=== PATIENT | male | born 1965 | race Caucasian/White ===

== ENCOUNTER 2016-12-05 05:45 | Day surgery (SDC) | payer MEDICAID, OTHER ==
[2016-12-02 15:59] VITALS: BMI 26.8
[~2016-12-05] VITALS: Ht 170.2 cm; Wt 76.5 kg
[2016-12-05] VITALS (8 sets, daily range): BP systolic 88–130; BP diastolic 57–72; PULSE 67–82; RESP 10–19; Ht 170.2 cm; Wt 76.5 kg
[~2016-12-05 05:45] MED LIST: LORA1TAB PO
[2016-12-05 06:43] LABS: ADD SCAN DIFF NO
[2016-12-05 06:47] LABS: BASOPHIL # 0.1 10^3/ul (0.0-0.1); BASOPHILS % 0.8 % (0.0-2.0); EOSINOPHILS # 0.8 10^3/ul (0.0-0.5); EOSINOPHILS % 8.6 % (0.0-7.0); HEMATOCRIT 38.3 % (42.0-52.0); HEMOGLOBIN 12.1 g/dl (14.0-18.0); LYMPHOCYTES # 2.3 10^3/ul (0.8-2.9); LYMPHOCYTES % 25.4 % (15.0-51.0); MEAN CORPUSCULAR HEMOGLOBIN 27.5 pg (29.0-33.0); MEAN CORPUSCULAR HGB CONC 31.6 g/dl (32.0-37.0); MEAN PLATELET VOLUME 11.2 fl (7.4-10.4); MONOCYTE # 0.8 10^3/ul (0.3-0.9); MONOCYTES % 9.2 % (0.0-11.0); NEUTROPHILS % 55.7 % (39.0-77.0); PLATELET COUNT 246 10^3/UL (140-415); RED CELL DISTRIBUTION WIDTH 15.2 % (11.5-14.5)
[2016-12-05] MEDS ORDERED: LIDOCAINE 2% (MDV) 20 ML INJ ONE (06:50)
[2016-12-05] MEDS ORDERED: BUPIVACAINE 0.25% (MPF) 30 ML INJ ONE (06:50)
[2016-12-05] MEDS ORDERED: BUPIVACAINE 0.5% (SDV) 30 ML INJ ONE (06:50)
[2016-12-05 07:03] LABS: INR 0.92; PROTIME 12.4 Sec (12.2-14.2)
[2016-12-05 07:13] LABS: CALCIUM 8.8 mg/dl (8.4-10.2); CREATININE 1.12 mg/dl (0.61-1.24); POTASSIUM 3.5 mmol/L (3.5-5.1)
[2016-12-05] MEDS ORDERED: PROPOFOL 20 ML ONE (07:22)
[2016-12-05] MEDS ORDERED: CEFAZOLIN 1 GM INJ ONE (07:22)
[2016-12-05] MEDS ORDERED: LIDOCAINE 2% (SDV) 5 ML INJ ONE (07:22)
[2016-12-05] MEDS ORDERED: MIDAZOLAM 1 MG/ML 2 ML INJ ONE (07:22)
[2016-12-05] MEDS ORDERED: FENTAnyl 50 MCG/ML VIAL ONE (07:22)
[2016-12-05] MEDS ORDERED: SOD CHLORIDE 0.9% 1,000 ML IV SCH (07:30)
[2016-12-05] MEDS ORDERED: CEFAZOLIN 2 GM/50 ML (PMX) 50 ML IVPB ONE (07:30)
[2016-12-05] MEDS ORDERED: METOCLOPRAMIDE 10 MG INJ ONE (07:34)
[2016-12-05] MEDS ORDERED: DEXAMETHASONE 4 MG/ML 1 ML INJ ONE (07:34)
[2016-12-05] MEDS ORDERED: ONDANSETRON 4 MG INJ ONE (07:34)
[2016-12-05] MEDS ORDERED: HYDROmorphONE 2 MG/ML SYG ONE (07:47)
[2016-12-05] MEDS ORDERED: PHENYLephrine (100 MCG/ML) 5ML SYG ONE (07:54)
[2016-12-05] MEDS ORDERED: ONDANSETRON 4 MG INJ IV PRN (08:00)
[2016-12-05] MEDS ORDERED: MEPERIDINE 25 MG INJ IV PRN (08:00)
[2016-12-05] MEDS ORDERED: HYDROmorphONE (0.2 MG/ML) 10ML SYG IV PRN ×2 (08:00)
[2016-12-05] MEDS ORDERED: DIPHENHYDRAMINE 50 MG INJ IV PRN (08:00)
[2016-12-05] MEDS ORDERED: OXYCODONE/ACETAMINOPHEN (5/325) TAB PO PRN ×2 (08:00)
[2016-12-05] MEDS ORDERED: FENTAnyl 50 MCG/ML VIAL IV PRN (08:00)
[2016-12-05] MEDS ORDERED: PROCHLORPERAZINE 10 MG INJ IV PRN (08:00)
[2016-12-05] MEDS ORDERED: HYDROCODONE/APAP (5/325) TAB PO ONE (08:30)
--- NOTE | 2016-12-05 08:43 | RADRPT ---
PROCEDURE: XR Chest. CLINICAL INDICATION: Preop. TECHNIQUE: Single frontal view of the chest was obtained. COMPARISON: None. FINDINGS: Cardiomediastinal silhouette appears normal Pulmonary vasculature appears normal. Lung donaldson appear clear. Costophrenic angles are well defined. The osseous elements appear intact. IMPRESSION: 1. No evidence for active cardiopulmonary disease. RPTAT: [facility] Physician Tasneem Date Time Electronically viewed and signed by Davin Howard Physician on 12/05/2016 08:43 /
--- NOTE | 2016-12-05 09:31 | OPR ---
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 He requests surgical excision. Risks, alternatives, benefits, and personnel were discuss ed with the patient. The patient expressed understanding and consents to the operation. PREOPERATIVE DIAGNOSIS: Right shoulder and left elbow basal cell cancer. POSTOPERATIVE DIAGNOSIS: Right shoulder and left elbow basal cell cancer. OPERATION: 1. Wide local excision of right shoulder basal cell cancer with 6 cm size incision and 6 x 3 cm siz e lesion. 2. Wide local excision of left elbow basal cell cancer with 5 cm size incision and 5 x 2 cm size le mya. 3. Localized adjacent tissue transfer with the use of skin flaps. SURGEON: Sid Storm MD SPECIMEN: Right shoulder and left elbow basal cell cancer surgical markings of right shoulder lesio n is short superior, long lateral and skin anterior, left elbow is short superior, long lateral and skin is posterior. COMPLICATIONS: None. ANESTHESIA: General. PROCEDURE: The patient was taken to the OR and prepped and draped in usual sterile fashion. Surgic al timeout was performed. IV antibiotics were given. An elliptical incision was made over the righ t shoulder lesion with a 15 blade. Dissection cautery was carried down full thickness circumferenti ally and excised with short superior, long lateral and skin anterior markings. Due to the tissue de fect, localized adjacent tissue transfer with the use of skin flaps was performed. Multilayer closu re with interrupted 3-0 Vicryl and skin arvin. Local anesthesia was injected. The left elbow was addressed similarly excised in a transverse fashion and an elliptical fashion with a 15 blade. Mena gical markings were short superior, long lateral and skin posterior. Due to the tissue defect, loca lized adjacent tissue transfer with the use of skin flaps was performed. Multilayer closure with in terrupted 3-0 Vicryl and skin arvin. Local anesthesia was injected. Dry dressings were applied t o the surgical sites. Dictated By: SID AARON/SONG Conf#: [id number] DID#: [id number]
--- NOTE | 2016-12-07 19:03 | RADRPT ---
Vent Rate: 82 bpm RR Interval: 0 msec AR Interval: 142 msec QRS Duration: 98 msec QT Interval: 346 msec QTC Interval: 404 msec P-R-T [place]: 23 - 68 - 55 degrees Normal sinus rhythm Normal ECG Electronically Signed By: Maximus Pascal [id number]
== END 2016-12-05 09:32 | disposition home or self-care (01) ==
LOC: SDS 05:45
PROVIDERS: ATTEND Surgery
DX: C44.519 Basal cell carcinoma of skin of other part of trunk (principal)
CPT/HCPCS: 14000; 71010; 80048; 85025; 85610; 85730; 88304; 93005; J0690; J1100; J1170; J2250; J2370; J2405; J2765; J3010; Z7512; Z7610

== ENCOUNTER 2017-03-09 14:08 | Inpatient (IN) | payer OTHER ==
[~2017-03-09] VITALS: Ht 170.2 cm; Wt 78.8 kg
[2017-03-09] MEDS ORDERED: morphine 10 MG INJ IM ONE ×2 (14:30→16:00)
[2017-03-09] MEDS ORDERED: LORAZEPAM 1 MG TAB PO ONE (15:00)
--- NOTE | 2017-03-09 15:49 | RADRPT ---
PROCEDURE: XR Ankle. CLINICAL INDICATION: Pain. TECHNIQUE: AP, lateral, and oblique views of the left ankle were performed. COMPARISON: None. FINDINGS: The mortise joint appears intact without evidence of fracture or dislocation. Talus is within naima l limits. There is a comminuted nondisplaced fracture of the calcaneus.. There is no significant so ft tissue swelling. IMPRESSION: 1. Comminuted nondisplaced fracture of the calcaneus. 2. The mortise joint appears intact.. RPTAT: UU .Miky Glover MD, MD Date Time Electronically viewed and signed by .Miky Glover MD, MD on 03/09/2017 15:49 .L/
--- NOTE | 2017-03-09 15:51 | RADRPT ---
PROCEDURE: XR Foot. CLINICAL INDICATION: Left foot pain. TECHNIQUE: AP, oblique, and lateral views of the left foot are available for review. COMPARISON: None available FINDINGS: There is a comminuted nondisplaced fracture of the calcaneus with fracture lucencies extending from the anterior to the posterior calcaneus. There is no evidence of dislocation. Remainder of the bon es of the foot appear intact. No other fractures or dislocations identified. Soft tissues are with in normal limits. IMPRESSION: Comminuted nondisplaced fracture of the calcaneus. CT scan of the foot is advised to further charac terize. RPTAT: UU .Miky Glover MD, MD Date Time Electronically viewed and signed by .Miky Glover MD, MD on 03/09/2017 15:51 .L/
--- NOTE | 2017-03-09 16:05 | RADRPT ---
PROCEDURE: XR Foot 3 Views. CLINICAL INDICATION: Right foot pain. TECHNIQUE: AP, oblique and lateral views of the right foot were obtained. The images were reviewe d on a PACS workstation. COMPARISON: None. FINDINGS: Subtle fracture through the inferior margin of the posterior calcaneus is best seen on the oblique i mage. The remaining osseous structures appear intact. No destructive bony lesions are identified. Interosseous spaces are normal. Soft tissues surrounding the foot appear unremarkable. IMPRESSION: Subtle fracture through the inferior margin of the posterior calcaneus, best seen on the oblique taiwo ge. This may reflect an avulsion fracture. If further characterization is needed CT or MRI could be helpful. If there is high clinical suspicion for additional traumatic injury, further evaluation with CT shou ld be considered. RPTAT: AA .Nicolas Ferris MD, Date Time Electronically viewed and signed by .Nicolas Ferris MD, on 03/09/2017 16:05 .P/
--- NOTE | 2017-03-09 16:51 | RADRPT ---
PROCEDURE: CT of the left ankle without contrast CLINICAL INDICATION: Calcaneal fracture TECHNIQUE: CT scan of the left ankle was performed . No IV contrast was administered. Coronal an d sagittal reformatted images were obtained from the axial source images. Images were reviewed on a high-resolution PACS workstation. The calculated radiation dose measures 355.56 mGy centimeters. Th e CTDI measures 18.23 mGy. One or more of the following dose reduction techniques were used: - Automated exposure control. - Adjustment of the mA and/or kV according to patient size . - Use of iterative reconstruction technique. COMPARISON: Radiographs from the same day FINDINGS: Osseous structures: There is a highly comminuted fracture of the calcaneus noting a prominent oblique component extendin g from the plantar surface of the calcaneus to the posterior superior calcaneal margin and oblique c omponent of the fracture extending from the posterior calcaneal margin anteriorly and involving the calcaneal cuboid articular surface. There are additional fracture lines which involve the articular surface of the posterior and anterior subtalar joints. The fracture also involves the peroneal tub ercle seen on the axial series image 36 with the of the fracture line coming into close proximity of the peroneus longus tendon seen on the axial series image 36 and 37. No additional fractures are identified. A bipartite medial and lateral hallux sesamoids are present . Soft tissues: There is straightening of the soft tissues around the calcaneus. Attenuation of the visualized tend ons is otherwise within normal limits for CT. There is suggestion of fluid in the peroneal tendon s linda. IMPRESSION: 1. Highly comminuted fracture of the calcaneus, as detailed above with the fracture lines involving the anterior and posterior subtalar articular surfaces. The fracture fragments are mildly displaced . RPTAT: UU .Juan Fernandez MD, MD Date Time Electronically viewed and signed by .Juan Fernandez MD, MD on 03/09/2017 16:50 .d/
[2017-03-09] MEDS ORDERED: HYDROmorphONE 1 MG/ML SYG IV STA (17:08)
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
[2017-03-09] MEDS ORDERED: ONDANSETRON 4 MG INJ IV PRN ×2 (17:30→20:00)
[2017-03-09] MEDS ORDERED: ACETAMINOPHEN 325 MG TAB PO PRN (17:30)
[2017-03-09 17:35] LABS: ADD SCAN DIFF NO
[2017-03-09 17:37] LABS: BASOPHILS % 0.3 % (0.0-2.0); EOSINOPHILS # 0.4 10^3/ul (0.0-0.5); EOSINOPHILS % 2.8 % (0.0-7.0); HEMATOCRIT 38.5 % (42.0-52.0); HEMOGLOBIN 12.6 g/dl (14.0-18.0); LYMPHOCYTES # 1.6 10^3/ul (0.8-2.9); LYMPHOCYTES % 12.8 % (15.0-51.0); MEAN CORPUSCULAR HEMOGLOBIN 29.2 pg (29.0-33.0); MEAN CORPUSCULAR HGB CONC 32.7 g/dl (32.0-37.0); MEAN CORPUSCULAR VOLUME 89.1 fl (82.0-101.0); MEAN PLATELET VOLUME 10.8 fl (7.4-10.4); MONOCYTE # 0.8 10^3/ul (0.3-0.9); MONOCYTES % 6.6 % (0.0-11.0); NEUTROPHIL # 9.6 10^3/ul (1.6-7.5); NEUTROPHILS % 76.9 % (39.0-77.0); PLATELET COUNT 208 10^3/UL (140-415); RED BLOOD COUNT 4.32 10^6/ul (4.70-6.10); RED CELL DISTRIBUTION WIDTH 17.1 % (11.5-14.5); WHITE BLOOD COUNT 12.5 10^3/ul (4.8-10.8)
[2017-03-09 17:52] LABS: INR 0.94; PROTIME 12.6 Sec (12.2-14.2)
[2017-03-09 17:53] LABS: PARTIAL THROMBOPLASTIN TIME 29.2 Sec (25.0-35.0)
[2017-03-09 18:01] LABS: ANION GAP 13 (8-16); BLOOD UREA NITROGEN 12 mg/dl (7-20); CALCIUM 8.9 mg/dl (8.4-10.2); CARBON DIOXIDE 23 mmol/L (21-31); CHLORIDE 108 mmol/L (97-110); CREATININE 1.05 mg/dl (0.61-1.24); GLUCOSE 82 mg/dl (70-220); SODIUM 140 mmol/L (135-144)
[2017-03-09 18:14] LABS: TROPONIN-I < 0.012 ng/ml (0.00-0.12)
[2017-03-09] MEDS: HYDROmorphONE 2 MG/ML SYG IV PRN ×2 (20:00→21:22)
[2017-03-09] MEDS ORDERED: NACL 0.9% 3 ML SYG IV SCH (20:00)
[2017-03-09 21:00] VITALS: BP 169/90; RESP 18
[2017-03-09] MEDS: HEPARIN 5,000 UNIT/0.5 ML VIAL SC SCH (21:43)
[2017-03-09 22:23] VITALS: Ht 170.2 cm; Wt 78.8 kg
[2017-03-09] MEDS ORDERED: LORAZEPAM 2 MG INJ IV PRN (22:30)
[2017-03-09] MEDS: HYDROmorphONE 1 MG/ML SYG IV PRN (23:32)
[2017-03-09] MEDS: SOD CHLORIDE 0.9% 1,000 ML IV SCH (23:49)
[2017-03-10 00:53] VITALS: BP 169/84; RESP 20
[2017-03-10] MEDS: HYDROmorphONE 2 MG/ML SYG IV PRN ×4 (01:17→19:55)
[2017-03-10] MEDS ORDERED: hydrALAzine 20 MG INJ IV PRN (01:30)
--- NOTE | 2017-03-10 01:50 | HP ---
Date/Time of Note Date/Time of Note DATE: 03/10/17 TIME: 01:36 Assessment/Plan VTE Prophylaxis VTE Prophylaxis Intervention: heparin Lines/Catheters IV [facility] Type [facility]from [facility] Peripheral IV Assessment/Plan Chief Complaint/Hosp Course This is a 48-year-old male being admitted to the [facility] floor for: #1 left ankle/foot comminuted fracture: CT shows: Highly comminuted fracture of the calcaneus, as detailed above with the fracture lines involving the anterior and posterior subtalar articular surfaces. The fracture fragments are mildly displaced. IV pain control, ice pack over fracture site, keep the patient n.p.o. after midnight, IV fluid hydration, orthopedic surgery consulted by the ER. Keep the patient nonweightbearing in a bedrest. #2 right ankle avulsion fracture: IV pain control, keep the patient nonweightbearing in a bedrest orthopedic on consult. #3 leukocytosis: Current time no signs of any fevers or signs of infection. Likely this could be reactive. We will continue to monitor #4 history of basal cell skin cancer: Follow-up with outpatient test rider per #5 heavy tobacco use: Patient has a approximately [id number] history. The current time we will apply nicotine patch. #6 DVT and GI prophylaxis: Heparin, Protonix. Further treatment strategy will be implemented as per the clinical course Problems: HPI/ROS Admit Date/Time Admit Date/Time Mar 09, 2017 at 17:15 Hx of Present Illness Chief complaint: Left and right foot pain after fall This is a 31-year-old male presents to the emergency room for evaluation of left foot and ankle pain after ground-level fall. The patient states he tripped over a table. He denies hitting his head or loss of consciousness and locates his pain to the left heel with no radiation. He describes his pain as a sharp pain worse with any movement. He denies any numbness or tingling in the foot. Allergies: NKDA Medications: See KACEY FIERRO Const: As per HPI Eyes : No pain discharge or redness or change in visual acuity ENT: No pain, sore throat, congestion, congestion, dysphagia or discharge Respiratory: No shortness of breath, cough, sputum, wheezing, or pleuritic pain Cardiovascular: No chest pain, palpitation, PND, or edema GI : no change in appetite, abdominal pain, nausea, vomiting, diarrhea, constipation, or change in the color his stool Genitourinary: No dysuria, hematuria, flank pain , discharge or CVA tenderness Musculoskeletal: As per HPI Skin: No rash, bruising or hives Neuro: No headache, dizziness, syncope, seizure, focal weakness Endocrine: No polyuria, polydipsia, temperature intolerance Psych: No hallucination, depression, anxiety or suicidal ideation PMH/Family/Social Past Medical History Basal cell cancer of the skin Past Surgical History Basal cell cancer surgery removal of the right shoulder and left elbow Family History Significant Family History: cancer (: Colon cancer) Social History Alcohol Use: occasionally Smoking Status: Current every day smoker (1 pack per day 40 years) Exam/Review of Systems Vital Signs Vitals Vital Signs Date Time Temp Pulse Resp B/P Pulse Ox O2 Delivery O2 Flow Rate FiO2 03/10/17 00:53 79 20 169/84 97 03/09/17 21:00 98.2 03/09/17 19:50 Room Air Exam Exam General: Patient is a well-developed well-nourished male in moderate distress HEENT: Atraumatic, normocephalic. The pupils are equal, round and reactive. Extraocular motor are intact Neck: Supple with full range of motion. No rigidity or meningismus Chest: Nontender Lungs: Clear to auscultation bilaterally no crackles rales or wheezing Heart: Normal S1-S2, Regular rhythm and rate. No murmur, S3, or S4 Abdomen: Soft , nontender, nondistended , bowel sounds are present. No guarding no rebound tenderness , No masses or organomegaly. No costovertebral temporal angle mass Extremities: Left foot and ankle swelling, mild bruising. Right foot tenderness to palpation posterior foot. Bilateral 2+ distal pulses Neurologic: Normal mental status, speech normal, cranial nerves II through XII are intact, motor and sensory are intact, no focal weakness Additional Comments PROCEDURE: XR Chest. CLINICAL INDICATION: Preop. TECHNIQUE: Single frontal view of the chest was obtained. COMPARISON: None. FINDINGS: Cardiomediastinal silhouette appears normal Pulmonary vasculature appears normal. Lung donaldson appear clear. Costophrenic angles are well defined. The osseous elements appear intact. IMPRESSION: 1. No evidence for active cardiopulmonary disease. PROCEDURE: XR Foot 3 Views. CLINICAL INDICATION: Right foot pain. TECHNIQUE: AP, oblique and lateral views of the right foot were obtained. The images were reviewed on a PACS workstation. COMPARISON: None. FINDINGS: Subtle fracture through the inferior margin of the posterior calcaneus is best seen on the oblique image. The remaining osseous structures appear intact. No destructive bony lesions are identified. Interosseous spaces are normal. Soft tissues surrounding the foot appear unremarkable. IMPRESSION: Subtle fracture through the inferior margin of the posterior calcaneus, best seen on the oblique image. This may reflect an avulsion fracture. If further characterization is needed CT or MRI could be helpful. If there is high clinical suspicion for additional traumatic injury, further evaluation with CT should be considered. PROCEDURE: XR Ankle. CLINICAL INDICATION: Pain. TECHNIQUE: AP, lateral, and oblique views of the left ankle were performed. COMPARISON: None. FINDINGS: The mortise joint appears intact without evidence of fracture or dislocation. Talus is within normal limits. There is a comminuted nondisplaced fracture of the calcaneus.. There is no significant soft tissue swelling. IMPRESSION: 1. Comminuted nondisplaced fracture of the calcaneus. 2. The mortise joint appears intact.. PROCEDURE: XR Foot. CLINICAL INDICATION: Left foot pain. TECHNIQUE: AP, oblique, and lateral views of the left foot are available for review. COMPARISON: None available FINDINGS: There is a comminuted nondisplaced fracture of the calcaneus with fracture lucencies extending from the anterior to the posterior calcaneus. There is no evidence of dislocation. Remainder of the bones of the foot appear intact. No other fractures or dislocations identified. Soft tissues are within normal limits. IMPRESSION: Comminuted nondisplaced fracture of the calcaneus. CT scan of the foot is advised to further characterize. RPTAT: UU .Miky Glover MD, MD Date Time Electronically viewed and signed by .Miky Glover MD, MD on 03/09/2017 15:51 PROCEDURE: CT of the left ankle without contrast CLINICAL INDICATION: Calcaneal fracture TECHNIQUE: CT scan of the left ankle was performed . No IV contrast was administered. Coronal and sagittal reformatted images were obtained from the axial source images. Images were reviewed on a high-resolution PACS workstation. The calculated radiation dose measures 355.56 mGy centimeters. The CTDI measures 18.23 mGy. One or more of the following dose reduction techniques were used: - Automated exposure control. - Adjustment of the mA and/or kV according to patient size . - Use of iterative reconstruction technique. COMPARISON: Radiographs from the same day FINDINGS: Osseous structures: There is a highly comminuted fracture of the calcaneus noting a prominent oblique component extending from the plantar surface of the calcaneus to the posterior superior calcaneal margin and oblique component of the fracture extending from the posterior calcaneal margin anteriorly and involving the calcaneal cuboid articular surface. There are additional fracture lines which involve the articular surface of the posterior and anterior subtalar joints. The fracture also involves the peroneal tubercle seen on the axial series image 36 with the of the fracture line coming into close proximity of the peroneus longus tendon seen on the axial series image 36 and 37. No additional fractures are identified. A bipartite medial and lateral hallux sesamoids are present. Soft tissues: There is straightening of the soft tissues around the calcaneus. Attenuation of the visualized tendons is otherwise within normal limits for CT. There is suggestion of fluid in the peroneal tendon sheath. IMPRESSION: 1. Highly comminuted fracture of the calcaneus, as detailed above with the fracture lines involving the anterior and posterior subtalar articular surfaces. The fracture fragments are mildly displaced. Labs Result Diagram: 03/09/17 1725 03/09/17 1725 Medications Medications Current Medications Hydromorphone HCl 2 mg 2 mg Q4H PRN IV PAIN LEVEL 6-10 Last administered on 01:17; Admin Dose 2 MG; Start 03/09/17 at 20:00 Sodium Chloride (NS) 1,000 ml @ 100 mls/hr Q10H IV Last administered on 23:49; Admin Dose 100 MLS/HR; Start 03/09/17 at 19:53 Ondansetron HCl (Zofran Inj) 4 mg Q6H PRN IV NAUSEA AND/OR VOMITING Last administered on 03/09/17 23:32; Admin Dose 4 MG; Start 03/09/17 at 20:00 Pantoprazole (Protonix Iv) 40 mg DAILY@06 IV ; Start 03/10/17 at 06:00 Heparin Sodium (Porcine) (Heparin (5000 Units/0.5 ml)) 5,000 unit Q8 SC Last administered on 03/09/17 21:43; Admin Dose 5,000 UNIT; Start 03/09/17 at 22:00 Hydromorphone HCl (Dilaudid) 1 mg Q4H PRN IV PAIN LEVEL 1-5 Last administered on 03/09/17 23:32; Admin Dose 1 MG; Start 03/09/17 at 22:30 Lorazepam (Ativan) 0.5 mg Q6H PRN IV ANXIETY; Start 03/09/17 at 22:30 Hydralazine HCl (Apresoline) 10 mg Q6H PRN IV ELEVATED SYSTOLIC BP; Start 03/10 at 01:30 YARY SOTO Mar 10, 2017 01:49
[2017-03-10 05:09] LABS: ADD SCAN DIFF NO
[2017-03-10 05:28] LABS: BASOPHILS % 0.4 % (0.0-2.0); EOSINOPHILS # 0.1 10^3/ul (0.0-0.5); EOSINOPHILS % 0.8 % (0.0-7.0); HEMATOCRIT 31.3 % (42.0-52.0); HEMOGLOBIN 11.8 g/dl (14.0-18.0); LYMPHOCYTES # 0.8 10^3/ul (0.8-2.9); LYMPHOCYTES % 10.6 % (15.0-51.0); MEAN CORPUSCULAR VOLUME 93.4 fl (82.0-101.0); MONOCYTE # 0.8 10^3/ul (0.3-0.9); MONOCYTES % 9.6 % (0.0-11.0); NEUTROPHIL # 6.2 10^3/ul (1.6-7.5); NEUTROPHILS % 78.2 % (39.0-77.0); PLATELET COUNT 178 10^3/UL (140-415); RED BLOOD COUNT 3.35 10^6/ul (4.70-6.10); RED CELL DISTRIBUTION WIDTH 18.9 % (11.5-14.5); WHITE BLOOD COUNT 7.9 10^3/ul (4.8-10.8)
[2017-03-10 05:52] LABS: CALCIUM 8.5 mg/dl (8.4-10.2); CREATININE 0.84 mg/dl (0.61-1.24); POTASSIUM 4.3 mmol/L (3.5-5.1)
[2017-03-10] MEDS: SOD CHLORIDE 0.9% 1,000 ML IV SCH ×2 (05:53→15:03)
[2017-03-10 06:01] LABS: MEAN CORPUSCULAR HEMOGLOBIN 35.2 pg (29.0-33.0); MEAN CORPUSCULAR HGB CONC 37.7 g/dl (32.0-37.0)
[2017-03-10] MEDS: PANTOPRAZOLE 40 MG INJ IV SCH (06:01)
[2017-03-10] MEDS: HEPARIN 5,000 UNIT/0.5 ML VIAL SC SCH ×3 (06:08→21:29)
[2017-03-10 07:01] VITALS: BP 134/71; RESP 18
--- NOTE | 2017-03-10 08:45 | PN ---
Date/Time of Note Date/Time of Note DATE: 03/10/17 TIME: 08:40 Assessment/Plan VTE Prophylaxis VTE Prophylaxis Intervention: SCD's Lines/Catheters IV Catheter Type (from Nrs): Peripheral IV Urinary Cath still in place: Yes Reason Cath still needed: urinary retention Assessment/Plan Chief Complaint/Hosp Course A/P: 48-year-old male being admitted to the [facility] floor for: #1 left ankle/foot comminuted fracture: CT shows: Highly comminuted fracture of the calcaneus, as detailed above with the fracture lines involving the anterior and posterior subtalar articular surfaces. The fracture fragments are mildly displaced. - continue IV pain control, ice pack over fracture site, keep the patient n.p.o. after midnight, IV fluid hydration, orthopedic surgery consulted by the ER. Keep the patient nonweightbearing in a bedrest. #2 right ankle avulsion fracture: IV pain control, keep the patient nonweightbearing in a bedrest orthopedic consult. #3 leukocytosis: Current time no signs of any fevers or signs of infection. Likely this could be reactive. We will continue to monitor #4 history of basal cell skin cancer: Follow-up with outpatient justice court judge per #5 heavy tobacco use: Patient has a approximately 13-tapo-swzy history. The current time we will apply nicotine patch. #6 DVT and GI prophylaxis: Heparin, Protonix. #7. EtOH - pt states last drink 2 days ago. Pt with some mild tremors - check ethanol level, start banana bag, ativan. Consider librium if etoh level elevated. Pt is medically cleared for surgery if etoh level nL, as EKG and trop both nL. Further treatment strategy will be implemented as per the clinical course Problems: Subjective 24 Hr Interval Summary Free Text/Dictation Pt with some ankle pain, states last drink was 2 days ago. Exam/Review of Systems Vital Signs Vitals Vital Signs Date Time Temp Pulse Resp B/P Pulse Ox O2 Delivery O2 Flow Rate FiO2 03/10/17 07:01 97.6 88 18 134/71 98 03/09/17 19:50 Room Air Intake and Output 03/09/17 03/09/17 03/10/17 15:00 23:00 07:00 Intake Total 1050 ml Output Total 1150 ml Balance -100 ml Exam General: Patient is a well-developed well-nourished male in mild-mod distress HEENT: Atraumatic, normocephalic. The pupils are equal, round and reactive. Extraocular motor are intact Neck: Supple with full range of motion. No rigidity or meningismus Chest: Nontender Lungs: Clear to auscultation bilaterally no crackles rales or wheezing Heart: Normal S1-S2, Regular rhythm and rate. No murmur, S3, or S4 Abdomen: Soft , nontender, nondistended , bowel sounds are present. No guarding no rebound tenderness , No masses or organomegaly. No costovertebral temporal angle mass Extremities: Left foot and ankle swelling, mild bruising. Right foot tenderness to palpation posterior foot. Bilateral 2+ distal pulses Neurologic: Normal mental status, speech normal, cranial nerves II through XII are intact, motor and sensory are intact, no focal weakness Results Result Diagram: 03/10/17 0445 03/10/17 0440 Results 24 hrs Laboratory Tests Test 03/09/17 17:25 03/10/17 04:40 03/10/17 04:45 White Blood Count 12.5 #H 7.9 # Red Blood Count 4.32 L 3.35 #L Hemoglobin 12.6 L 11.8 L Hematocrit 38.5 L 31.3 L Mean Corpuscular Volume 89.1 93.4 Mean Corpuscular Hemoglobin 29.2 35.2 #H Mean Corpuscular Hemoglobin Concent 32.7 37.7 H Red Cell Distribution Width 17.1 H 18.9 H Platelet Count 208 178 Mean Platelet Volume 10.8 H 11.0 H Neutrophils % 76.9 78.2 H Lymphocytes % 12.8 L 10.6 L Monocytes % 6.6 9.6 Eosinophils % 2.8 0.8 Basophils % 0.3 0.4 Nucleated Red Blood Cells % 0.0 0.0 Neutrophils # 9.6 H 6.2 Lymphocytes # 1.6 0.8 Monocytes # 0.8 0.8 Eosinophils # 0.4 0.1 Basophils # 0.0 0.0 Nucleated Red Blood Cells # 0.0 0.0 Prothrombin Time 12.6 Prothrombin Time Ratio 1.0 INR International Normalized Ratio 0.94 Activated Partial Thromboplast Time 29.2 Sodium Level 140 138 Potassium Level 4.0 4.3 Chloride Level 108 105 Carbon Dioxide Level 23 26 Anion Gap 13 11 Blood Urea Nitrogen 12 14 Creatinine 1.05 0.84 Glucose Level 82 100 Calcium Level 8.9 8.5 Troponin I < 0.012 Medications Medications Current Medications Hydromorphone HCl 2 mg 2 mg Q4H PRN IV PAIN LEVEL 6-10 Last administered on 06:00; Admin Dose 2 MG; Start 03/09/17 at 20:00 Sodium Chloride (NS) 1,000 ml @ 100 mls/hr Q10H IV Last administered on 23:49; Admin Dose 100 MLS/HR; Start 03/09/17 at 19:53 Ondansetron HCl (Zofran Inj) 4 mg Q6H PRN IV NAUSEA AND/OR VOMITING Last administered on 03/09/17 23:32; Admin Dose 4 MG; Start 03/09/17 at 20:00 Pantoprazole (Protonix Iv) 40 mg DAILY@06 IV Last administered on 03/10/17 06: 01; Admin Dose 40 MG; Start 03/10/17 at 06:00 Heparin Sodium (Porcine) (Heparin (5000 Units/0.5 ml)) 5,000 unit Q8 SC Last administered on 03/10/17 06:08; Admin Dose 5,000 UNIT; Start 03/09/17 at 22:00 Hydromorphone HCl (Dilaudid) 1 mg Q4H PRN IV PAIN LEVEL 1-5 Last administered on 03/09/17 23:32; Admin Dose 1 MG; Start 03/09/17 at 22:30 Hydralazine HCl 10 mg 10 mg Q6H PRN IV ELEVATED SYSTOLIC BP; Start 03/10/17 at 01:30 Multivitamins/ Thiamine HCl/ Folic Acid/Sodium Chloride (Mvi Adult/ Vitamin B1/ Folic Acid/NS) 1,011.2 ml @ 125 mls/ hr DAILY@09 IVPB ; Start 03/10/17 at 09:00 ; Status UNV Lorazepam (Ativan) 1 mg Q1H PRN IV CONTROL WITHDRAWAL SYMPTOMS; Start 03/10/17 at 09:30; Status UNV NORBERTO SY Mar 10, 2017 08:45
[2017-03-10] MEDS: LORAZEPAM 2 MG INJ IV PRN ×2 (10:00→23:58)
[2017-03-10] MEDS: MULTIVITAMINS 10 ML, THIAMINE 100 MG, FOLIC ACID 1 MG in SOD CHLORIDE 0.9% 1,000 ML IVPB SCH (10:33)
[2017-03-10] MEDS: CHLORDIAZEPOXIDE 5 MG CAP PO SCH ×4 (10:34→20:13)
[2017-03-10 10:48] LABS: CHOL/HDL RATIO 2.9 RATIO
--- NOTE | 2017-03-10 12:02 | CONS ---
DATE OF ADMISSION: 03/10/2017 DATE OF CONSULTATION: 03/10/2017 TYPE OF CONSULTATION: Orthopedic Surgical HISTORY OF PRESENT ILLNESS: The patient is a 51-year-old male who was admitted on 03/10/2017 when héctor la came to emergency room complaining of pain and swelling around the left heel. According to the layson goodrich, he was in the process of trying to get into his house when he sustained some type of ground l evel fall. Following the fall, he was experiencing increasing pain and swelling involving his left heel. He claims that he tripped over the table and fell. Denies any other injuries. He has also carcinoma of the skin and had removal of basal cell carcinoma from his right shoulder an d left elbow in the past. PHYSICAL EXAMINATION: My examination revealed a 51-year-old male who seems to be somewhat jittery, who is not in any acute distress. There was diffuse swelling and signs of ecchymosis around the lef t heel. There was tenderness of the left heel below the level of ankle joint and the range of motio n was limited. There was some numbness in the left foot. Range of motion of the left ankle was bae ited with pain. There were no gross instabilities. DIAGNOSTIC DATA: X-rays and CT scan of the left heel revealed the presence of comminuted fracture i nvolving the left calcaneus. Even though fracture was comminuted, overall alignment was acceptable. There was some extension of the fracture line into the subtalar joint. DIAGNOSTIC IMPRESSION: Comminuted fracture involving the left calcaneus, in acceptable alignment. TREATMENT PLAN: 1. Elevation of the left heel with Dean dressing in order to reduce the swelling. 2. Immobilization of the left heel in a short leg cast in about a week when the swelling has subsid ed. 3. Absolutely no weightbearing for about 8 weeks. 4. If he can follow the instructions of keeping his left foot elevated and not putting any weight o n his left foot and if his pain can be controlled with pain medications, then he can be discharged f or further followup as an outpatient in 1 week. He may need possible observation for possible devel opment of DT prior to discharge. Following my initial evaluation, recommended Dean dressing was applied to his left foot and ankle. Dictated By: ÁLVARO MERCADO/SONG Conf#: [id number] [facility]#: [id number]
[2017-03-10] MEDS: HYDROmorphONE 1 MG/ML SYG IV PRN (16:12)
[2017-03-10 19:35] VITALS: BP 168/85; RESP 18
[2017-03-11] MEDS: SOD CHLORIDE 0.9% 1,000 ML IV SCH ×3 (01:53→22:09)
[2017-03-11] MEDS: HYDROmorphONE 2 MG/ML SYG IV PRN ×4 (03:06→21:10)
[2017-03-11 05:09] LABS: ADD SCAN DIFF NO
[2017-03-11 05:33] LABS: MAGNESIUM 1.5 mg/dl (1.7-2.5); PHOSPHORUS 2.8 mg/dl (2.5-4.9)
[2017-03-11 05:39] LABS: CALCIUM 8.6 mg/dl (8.4-10.2); CREATININE 0.84 mg/dl (0.61-1.24); POTASSIUM 3.7 mmol/L (3.5-5.1)
[2017-03-11] MEDS: PANTOPRAZOLE 40 MG INJ IV SCH (05:47)
[2017-03-11] MEDS: HEPARIN 5,000 UNIT/0.5 ML VIAL SC SCH ×3 (05:48→21:31)
[2017-03-11 05:53] LABS: BASOPHILS % 0.4 % (0.0-2.0); EOSINOPHILS # 0.3 10^3/ul (0.0-0.5); EOSINOPHILS % 3.8 % (0.0-7.0); HEMATOCRIT 30.8 % (42.0-52.0); HEMOGLOBIN 11.1 g/dl (14.0-18.0); LYMPHOCYTES % 12.4 % (15.0-51.0); MEAN CORPUSCULAR HEMOGLOBIN 33.1 pg (29.0-33.0); MEAN CORPUSCULAR VOLUME 91.9 fl (82.0-101.0); MEAN PLATELET VOLUME 11.2 fl (7.4-10.4); MONOCYTE # 0.8 10^3/ul (0.3-0.9); MONOCYTES % 9.5 % (0.0-11.0); NEUTROPHIL # 5.8 10^3/ul (1.6-7.5); NEUTROPHILS % 73.4 % (39.0-77.0); PLATELET COUNT 158 10^3/UL (140-415); RED BLOOD COUNT 3.35 10^6/ul (4.70-6.10); RED CELL DISTRIBUTION WIDTH 16.3 % (11.5-14.5); WHITE BLOOD COUNT 7.9 10^3/ul (4.8-10.8)
[2017-03-11] MEDS: MULTIVITAMINS 10 ML, THIAMINE 100 MG, FOLIC ACID 1 MG in SOD CHLORIDE 0.9% 1,000 ML IVPB SCH (07:51)
[2017-03-11 08:18] VITALS: BP 152/76; RESP 20
[2017-03-11] MEDS: CHLORDIAZEPOXIDE 5 MG CAP PO SCH ×4 (09:04→21:10)
[2017-03-11] MEDS: LORAZEPAM 2 MG INJ IV PRN (13:00)
--- NOTE | 2017-03-11 13:46 | PN ---
Date/Time of Note Date/Time of Note DATE: 03/11/17 TIME: 13:44 Assessment/Plan VTE Prophylaxis VTE Prophylaxis Intervention: heparin Lines/Catheters IV [facility] Type [facility]from [facility]): Peripheral IV Urinary Cath still in place: No Reason Cath still needed: other (indicate) (Discontinue catheter) Assessment/Plan Problems: (1) Alcohol withdrawal syndrome Status: Acute Comment: At present there is no evidence of complications from the alcohol. However I am somewhat concerned. Will observe him overnight to make sure he does not go into DTs.. If he does not then he can be discharged in the morning Qualifiers: Complication of substance-induced condition: uncomplicated Qualified Code: F10.230 - Alcohol withdrawal syndrome, uncomplicated (2) Left calcaneal fracture Status: Acute Comment: He has been seen in consultation by Dr. Mortensen. His recommendations are in his progress note. I am not certain at least as of today how good this patient can be about staying off of it for a week. Will do her best I will try to make sure that he has adequate durable medical equipment to give the best chance. Qualifiers: Encounter type: initial encounter Calcaneus location: body Fracture type : closed Fracture alignment: displaced Qualified Code: S92.012A - Closed displaced fracture of body of left calcaneus, initial encounter (3) Tobacco abuse Status: Chronic Comment: He has a nicotine patch. Subjective 24 Hr Interval Summary Free Text/Dictation Patient complains wants to go out and smoke. Notes some pain. He states that he will be able to stay off of his foot for the week. Constitutional: no complaints (No fevers chills or sweats) Respiratory: no complaints Cardiovascular: no complaints Gastrointestinal: no complaints Genitourinary: no complaints Musculoskeletal: other (Left foot pain) Exam/Review of Systems Vital Signs Vitals Vital Signs Date Time Temp Pulse Resp B/P Pulse Ox O2 Delivery O2 Flow Rate FiO2 03/11/17 08:18 98.6 97 20 152/76 96 03/10/17 08:00 Nasal Cannula 2.0 Intake and Output 03/10/17 03/10/17 03/11/17 15:00 23:00 07:00 Intake Total 1530 ml 1700 ml Output Total 900 ml 1300 ml Balance 630 ml 400 ml Exam Minimally tremulous Constitutional: alert, oriented Neck: non-tender, supple Respiratory: clear to auscultation, normal air movement Cardiovascular: nl pulses, regular rate and rhythm Results Result Diagram: 03/11/17 0441 03/11/17 0440 Results 24 hrs Laboratory Tests Test 03/11/17 04:40 03/11/17 04:41 Sodium Level 136 Potassium Level 3.7 Chloride Level 104 Carbon Dioxide Level 20 L Anion Gap 16 Blood Urea Nitrogen 9 Creatinine 0.84 Glucose Level 75 Calcium Level 8.6 Phosphorus Level 2.8 Magnesium Level 1.5 L White Blood Count 7.9 Red Blood Count 3.35 L Hemoglobin 11.1 L Hematocrit 30.8 L Mean Corpuscular Volume 91.9 Mean Corpuscular Hemoglobin 33.1 H Mean Corpuscular Hemoglobin Concent 36.0 Red Cell Distribution Width 16.3 H Platelet Count 158 Mean Platelet Volume 11.2 H Neutrophils % 73.4 Lymphocytes % 12.4 L Monocytes % 9.5 Eosinophils % 3.8 Basophils % 0.4 Nucleated Red Blood Cells % 0.0 Neutrophils # 5.8 Lymphocytes # 1.0 Monocytes # 0.8 Eosinophils # 0.3 Basophils # 0.0 Nucleated Red Blood Cells # 0.0 Medications Medications Current Medications Hydromorphone HCl 2 mg 2 mg Q4H PRN IV PAIN LEVEL 6-10 Last administered on 07:51; Admin Dose 2 MG; Start 03/09/17 at 20:00 Sodium Chloride (NS) 1,000 ml @ 100 mls/hr Q10H IV Last administered on 23:49; Admin Dose 100 MLS/HR; Start 03/09/17 at 19:53 Ondansetron HCl (Zofran Inj) 4 mg Q6H PRN IV NAUSEA AND/OR VOMITING Last administered on 03/09/17 23:32; Admin Dose 4 MG; Start 03/09/17 at 20:00 Pantoprazole (Protonix Iv) 40 mg DAILY@06 IV Last administered on 03/11/17 05: 47; Admin Dose 40 MG; Start 03/10/17 at 06:00 Heparin Sodium (Porcine) (Heparin (5000 Units/0.5 ml)) 5,000 unit Q8 SC Last administered on 03/11/17 05:48; Admin Dose 5,000 UNIT; Start 03/09/17 at 22:00 Hydromorphone HCl (Dilaudid) 1 mg Q4H PRN IV PAIN LEVEL 1-5 Last administered on 03/10/17 16:12; Admin Dose 1 MG; Start 03/09/17 at 22:30 Hydralazine HCl 10 mg 10 mg Q6H PRN IV ELEVATED SYSTOLIC BP; Start 03/10/17 at 01:30 Multivitamins/ Thiamine HCl/ Folic Acid/Sodium Chloride (Mvi Adult/ Vitamin B1/ Folic Acid/NS) 1,011.2 ml @ 125 mls/ hr DAILY@09 IVPB Last administered on 07:51; Admin Dose 125 MLS/HR; Start 03/10/17 at 10:00 Lorazepam (Ativan) 1 mg Q1H PRN IV CONTROL WITHDRAWAL SYMPTOMS Last administered on 03/11/17 13:00; Admin Dose 1 MG; Start 03/10/17 at 09:30 Chlordiazepoxide (Librium) 10 mg QID PO Last administered on 03/11/17 12:57; Admin Dose 10 MG; Start 03/10/17 at 10:30 DAMON BURKETT MD Mar 11, 2017 13:46
[2017-03-11] MEDS: LORAZEPAM 1 MG TAB PO PRN ×4 (16:35→23:32)
[2017-03-11 19:30] VITALS: BP 170/81; RESP 18
[2017-03-12] MEDS: HYDROmorphONE 2 MG/ML SYG IV PRN ×4 (02:56→23:17)
[2017-03-12] MEDS: LORAZEPAM 1 MG TAB PO PRN ×4 (03:11→20:45)
[2017-03-12] MEDS: HYDROmorphONE 1 MG/ML SYG IV PRN (06:30)
[2017-03-12] MEDS: PANTOPRAZOLE (EC) 40 MG TAB PO SCH (06:31)
[2017-03-12] MEDS: HEPARIN 5,000 UNIT/0.5 ML VIAL SC SCH ×3 (06:32→21:19)
[2017-03-12 06:42] LABS: ADD SCAN DIFF NO
[2017-03-12 06:58] LABS: BASOPHILS % 0.4 % (0.0-2.0); EOSINOPHILS # 0.3 10^3/ul (0.0-0.5); EOSINOPHILS % 5.3 % (0.0-7.0); HEMATOCRIT 27.1 % (42.0-52.0); HEMOGLOBIN 10.4 g/dl (14.0-18.0); LYMPHOCYTES % 18.1 % (15.0-51.0); MEAN CORPUSCULAR HEMOGLOBIN 34.6 pg (29.0-33.0); MEAN PLATELET VOLUME 11.1 fl (7.4-10.4); MONOCYTE # 0.5 10^3/ul (0.3-0.9); MONOCYTES % 9.1 % (0.0-11.0); NEUTROPHIL # 3.7 10^3/ul (1.6-7.5); NEUTROPHILS % 66.6 % (39.0-77.0); PLATELET COUNT 149 10^3/UL (140-415); RED BLOOD COUNT 3.01 10^6/ul (4.70-6.10); WHITE BLOOD COUNT 5.5 10^3/ul (4.8-10.8)
[2017-03-12 07:01] LABS: CALCIUM 8.9 mg/dl (8.4-10.2); CREATININE 0.82 mg/dl (0.61-1.24); POTASSIUM 3.5 mmol/L (3.5-5.1)
[2017-03-12 07:13] LABS: MEAN CORPUSCULAR HGB CONC 38.4 g/dl (32.0-37.0)
[2017-03-12] MEDS: SOD CHLORIDE 0.9% 1,000 ML IV SCH ×2 (07:53→17:13)
[2017-03-12] MEDS: CHLORDIAZEPOXIDE 5 MG CAP PO SCH ×5 (08:08→20:52)
[2017-03-12] MEDS: MULTIVITAMINS 10 ML, THIAMINE 100 MG, FOLIC ACID 1 MG in SOD CHLORIDE 0.9% 1,000 ML IVPB SCH (08:09)
[2017-03-12 08:43] VITALS: BP 146/80; RESP 21
[2017-03-12] MEDS ORDERED: POTASSIUM CHLORIDE (SR) 20 MEQ TAB PO STA (08:45)
--- NOTE | 2017-03-12 08:48 | PN ---
Date/Time of Note Date/Time of Note DATE: 03/12/17 TIME: 08:46 Assessment/Plan VTE Prophylaxis VTE Prophylaxis Intervention: heparin Lines/Catheters IV [facility] Type ([facility]): Peripheral IV Urinary Cath still in place: No (DC Escalante catheter) Assessment/Plan Problems: (1) Alcohol withdrawal syndrome Status: Acute Comment: There is no evidence of active DTs. There is no significant evidence of withdrawal phenomenon. He has however demonstrating some of the personality traits of addiction. Placement is going to be a little bit of a challenge. Qualifiers: Complication of substance-induced condition: uncomplicated Qualified Code: F10.230 - Alcohol withdrawal syndrome, uncomplicated (2) Left calcaneal fracture Status: Acute Comment: Please see orthopedic surgical notes. Placing him for nonweightbearing status on that left heel will require some creativity Qualifiers: Encounter type: initial encounter Calcaneus location: body Fracture type : closed Fracture alignment: displaced Qualified Code: S92.012A - Closed displaced fracture of body of left calcaneus, initial encounter (3) Tobacco abuse Status: Chronic Comment: Again counseled that he may not smoke in the hospital. He does have a nicotine patch on Subjective 24 Hr Interval Summary Free Text/Dictation Patient reports that he would like to smoke. He reports that his cell phone is at a different location than this hospital. He states that his home environment has a full flight of stairs. He denies any chest pain shortness of breath Constitutional: no complaints Respiratory: no complaints Cardiovascular: no complaints Gastrointestinal: no complaints Exam/Review of Systems Vital Signs Vitals Vital Signs Date Time Temp Pulse Resp B/P Pulse Ox O2 Delivery O2 Flow Rate FiO2 03/12/17 08:43 98.0 80 21 146/80 96 03/10/17 08:00 Nasal Cannula 2.0 Intake and Output 03/11/17 03/11/17 03/12/17 15:00 23:00 07:00 Intake Total 1861.2 ml 1250 ml Output Total 840 ml 1200 ml Balance 1021.2 ml 50 ml Exam Not tremulous Constitutional: alert, oriented Neck: non-tender, supple Respiratory: clear to auscultation, normal air movement Cardiovascular: nl pulses, regular rate and rhythm Results Result Diagram: 03/12/17 0515 03/12/17 0515 Results 24 hrs Laboratory Tests Test 03/12/17 05:15 White Blood Count 5.5 # Red Blood Count 3.01 L Hemoglobin 10.4 L Hematocrit 27.1 L Mean Corpuscular Volume 90.0 Mean Corpuscular Hemoglobin 34.6 H Mean Corpuscular Hemoglobin Concent 38.4 H Red Cell Distribution Width 16.0 H Platelet Count 149 Mean Platelet Volume 11.1 H Neutrophils % 66.6 Lymphocytes % 18.1 Monocytes % 9.1 Eosinophils % 5.3 Basophils % 0.4 Nucleated Red Blood Cells % 0.0 Neutrophils # 3.7 Lymphocytes # 1.0 Monocytes # 0.5 Eosinophils # 0.3 Basophils # 0.0 Nucleated Red Blood Cells # 0.0 Sodium Level 139 Potassium Level 3.5 Chloride Level 104 Carbon Dioxide Level 24 Anion Gap 15 Blood Urea Nitrogen 9 Creatinine 0.82 Glucose Level 89 Calcium Level 8.9 Medications Medications Current Medications Hydromorphone HCl 2 mg 2 mg Q4H PRN IV PAIN LEVEL 6-10 Last administered on 02:56; Admin Dose 2 MG; Start 03/09/17 at 20:00 Sodium Chloride (NS) 1,000 ml @ 100 mls/hr Q10H IV Last administered on 22:09; Admin Dose 100 MLS/HR; Start 03/09/17 at 19:53 Ondansetron HCl (Zofran Inj) 4 mg Q6H PRN IV NAUSEA AND/OR VOMITING Last administered on 03/09/17 23:32; Admin Dose 4 MG; Start 03/09/17 at 20:00 Heparin Sodium (Porcine) (Heparin (5000 Units/0.5 ml)) 5,000 unit Q8 SC Last administered on 03/12/17 06:32; Admin Dose 5,000 UNIT; Start 03/09/17 at 22:00 Hydromorphone HCl (Dilaudid) 1 mg Q4H PRN IV PAIN LEVEL 1-5 Last administered on 03/12/17 06:30; Admin Dose 1 MG; Start 03/09/17 at 22:30 Hydralazine HCl 10 mg 10 mg Q6H PRN IV ELEVATED SYSTOLIC BP; Start 03/10/17 at 01:30 Multivitamins/ Thiamine HCl/ Folic Acid/Sodium Chloride (Mvi Adult/ Vitamin B1/ Folic Acid/NS) 1,011.2 ml @ 125 mls/ hr DAILY@09 IVPB Last administered on 08:09; Admin Dose 125 MLS/HR; Start 03/10/17 at 10:00 Chlordiazepoxide (Librium) 10 mg QID PO Last administered on 03/12/17 08:08; Admin Dose 10 MG; Start 03/10/17 at 10:30 Lorazepam (Ativan) 1 mg Q1H PRN PO CONTROL WITHDRAWAL SYMPTOMS Last administered on 03/12/17 04:57; Admin Dose 1 MG; Start 03/11/17 at 14:00 Pantoprazole (Protonix Tab) 40 mg DAILY@06 PO Last administered on 03/12/17 06 :31; Admin Dose 40 MG; Start 03/12/17 at 06:00 DAMON BURKETT MD Mar 12, 2017 08:48
[2017-03-12] MEDS ORDERED: NICOTINE (21 MG/24 HR) PATCH TRANSDERM ONE (19:00)
[2017-03-12 20:14] VITALS: BP 161/87; RESP 20
[2017-03-12 21:00] VITALS: BP 148/76
[2017-03-13] MEDS: HYDROmorphONE 2 MG/ML SYG IV PRN ×3 (03:23→14:27)
[2017-03-13] MEDS: SOD CHLORIDE 0.9% 1,000 ML IV SCH ×3 (03:27→21:30)
[2017-03-13] MEDS: LORAZEPAM 1 MG TAB PO PRN ×2 (05:01→21:50)
[2017-03-13] MEDS: PANTOPRAZOLE (EC) 40 MG TAB PO SCH (05:01)
[2017-03-13] MEDS: HEPARIN 5,000 UNIT/0.5 ML VIAL SC SCH ×3 (05:37→22:35)
[2017-03-13 06:01] LABS: ADD SCAN DIFF NO
[2017-03-13 06:11] LABS: BASOPHILS % 0.4 % (0.0-2.0); EOSINOPHILS # 0.5 10^3/ul (0.0-0.5); EOSINOPHILS % 8.5 % (0.0-7.0); HEMATOCRIT 32.9 % (42.0-52.0); HEMOGLOBIN 11.2 g/dl (14.0-18.0); LYMPHOCYTES # 1.2 10^3/ul (0.8-2.9); LYMPHOCYTES % 20.9 % (15.0-51.0); MEAN CORPUSCULAR HEMOGLOBIN 30.6 pg (29.0-33.0); MEAN CORPUSCULAR VOLUME 89.9 fl (82.0-101.0); MEAN PLATELET VOLUME 11.8 fl (7.4-10.4); MONOCYTE # 0.7 10^3/ul (0.3-0.9); MONOCYTES % 12.4 % (0.0-11.0); NEUTROPHIL # 3.2 10^3/ul (1.6-7.5); NEUTROPHILS % 57.4 % (39.0-77.0); PLATELET COUNT 185 10^3/UL (140-415); RED BLOOD COUNT 3.66 10^6/ul (4.70-6.10); RED CELL DISTRIBUTION WIDTH 16.3 % (11.5-14.5); WHITE BLOOD COUNT 5.6 10^3/ul (4.8-10.8)
[2017-03-13 06:37] LABS: CALCIUM 9.3 mg/dl (8.4-10.2); CREATININE 0.9 mg/dl (0.61-1.24); POTASSIUM 4.1 mmol/L (3.5-5.1)
[2017-03-13 08:45] VITALS: BP 189/93; RESP 18
[2017-03-13] MEDS: MULTIVITAMINS 10 ML, THIAMINE 100 MG, FOLIC ACID 1 MG in SOD CHLORIDE 0.9% 1,000 ML IVPB SCH (08:54)
[2017-03-13] MEDS: CHLORDIAZEPOXIDE 5 MG CAP PO SCH ×2 (08:54→13:20)
--- NOTE | 2017-03-13 16:04 | PN ---
Date/Time of Note Date/Time of Note DATE: 03/13/17 TIME: 16:00 Assessment/Plan VTE Prophylaxis VTE Prophylaxis Intervention: heparin Lines/Catheters IV [facility] Type [facility] Peripheral IV Urinary Cath still in place: No Assessment/Plan Chief Complaint/Hosp Course Assessment and plan 1. Left calcaneal fracture. Patient is nonweightbearing at this time on left lower extremely. Does report he has several stairs at his home. Will get physical therapy to evaluate. 2. Reported alcohol withdrawal syndrome. No evidence of DTs at this time. Alcohol cessation was advised. 3. History of heavy tobacco use. Smoking cessation advised. GERD prophylaxis: Protonix DVT prophylaxis: Heparin Discussed plan of care with Dr. Sánchez Problems: Subjective 24 Hr Interval Summary Free Text/Dictation Still reports having pain on left foot Exam/Review of Systems Vital Signs Vitals Vital Signs Date Time Temp Pulse Resp B/P Pulse Ox O2 Delivery O2 Flow Rate FiO2 03/13/17 08:45 98.4 77 18 189/93 96 03/10/17 08:00 Nasal Cannula 2.0 Intake and Output 03/12/17 03/12/17 03/13/17 15:00 23:00 07:00 Intake Total 1011.2 ml 950 ml 1870 ml Output Total 1950 ml 1300 ml Balance 1011.2 ml -1000 ml 570 ml Exam Constitutional: alert, oriented Psych: nl mood/affect Head: normocephalic Neck: supple, No jvd Respiratory: clear to auscultation Cardiovascular: regular rate and rhythm Gastrointestinal: non-tender, soft Musculoskeletal: other (Left lower extremity), No nl gait and stance Neurological: PASTRY COOK II-XII intact, nl mental status, nl speech Results Result Diagram: 03/13/17 0505 03/13/17 0505 Results 24 hrs Laboratory Tests Test 03/13/17 05:05 White Blood Count 5.6 Red Blood Count 3.66 #L Hemoglobin 11.2 L Hematocrit 32.9 #L Mean Corpuscular Volume 89.9 Mean Corpuscular Hemoglobin 30.6 Mean Corpuscular Hemoglobin Concent 34.0 Red Cell Distribution Width 16.3 H Platelet Count 185 # Mean Platelet Volume 11.8 H Neutrophils % 57.4 Lymphocytes % 20.9 Monocytes % 12.4 H Eosinophils % 8.5 H Basophils % 0.4 Nucleated Red Blood Cells % 0.0 Neutrophils # 3.2 Lymphocytes # 1.2 Monocytes # 0.7 Eosinophils # 0.5 Basophils # 0.0 Nucleated Red Blood Cells # 0.0 Sodium Level 140 Potassium Level 4.1 Chloride Level 104 Carbon Dioxide Level 25 Anion Gap 15 Blood Urea Nitrogen 10 Creatinine 0.90 Glucose Level 95 Calcium Level 9.3 Medications Medications Current Medications Sodium Chloride (NS) 1,000 ml @ 100 mls/hr Q10H IV Last administered on 03:27; Admin Dose 100 MLS/HR; Start 03/09/17 at 19:53 Ondansetron HCl (Zofran Inj) 4 mg Q6H PRN IV NAUSEA AND/OR VOMITING Last administered on 03/09/17 23:32; Admin Dose 4 MG; Start 03/09/17 at 20:00 Heparin Sodium (Porcine) (Heparin (5000 Units/0.5 ml)) 5,000 unit Q8 SC Last administered on 03/13/17 14:32; Admin Dose 5,000 UNIT; Start 03/09/17 at 22:00 Hydromorphone HCl (Dilaudid) 1 mg Q4H PRN IV PAIN LEVEL 1-5 Last administered on 03/12/17 06:30; Admin Dose 1 MG; Start 03/09/17 at 22:30 Hydralazine HCl 10 mg 10 mg Q6H PRN IV ELEVATED SYSTOLIC BP; Start 03/10/17 at 01:30 Multivitamins/ Thiamine HCl/ Folic Acid/Sodium Chloride (Mvi Adult/ Vitamin B1/ Folic Acid/NS) 1,011.2 ml @ 125 mls/ hr DAILY@09 IVPB Last administered on 08:54; Admin Dose 125 MLS/HR; Start 03/10/17 at 10:00 Lorazepam (Ativan) 1 mg Q1H PRN PO CONTROL WITHDRAWAL SYMPTOMS Last administered on 03/13/17 05:01; Admin Dose 1 MG; Start 03/11/17 at 14:00 Pantoprazole (Protonix Tab) 40 mg DAILY@06 PO Last administered on 03/13/17 05 :01; Admin Dose 40 MG; Start 03/12/17 at 06:00 Oxycodone/ Acetaminophen (Percocet (5/ 325)) 2 tab Q4H PRN PO PAIN; Start 03/13 at 15:00 REGIDOR,WILBERT Mar 13, 2017 16:04
[2017-03-13] MEDS: HYDROmorphONE 1 MG/ML SYG IV PRN (16:59)
[2017-03-13 19:06] VITALS: BP 139/72; PULSE 89; RESP 18
[2017-03-13] MEDS: OXYCODONE/ACETAMINOPHEN (5/325) TAB PO PRN (19:06)
[2017-03-13 19:25] VITALS: BP 132/75; RESP 20
[2017-03-13] MEDS: DOCUSATE SODIUM 100 MG CAP PO SCH (21:30)
[2017-03-14 06:16] LABS: ADD SCAN DIFF NO
[2017-03-14] MEDS: PANTOPRAZOLE (EC) 40 MG TAB PO SCH (06:19)
[2017-03-14] MEDS: OXYCODONE/ACETAMINOPHEN (5/325) TAB PO PRN ×2 (06:19→10:39)
[2017-03-14] MEDS: HEPARIN 5,000 UNIT/0.5 ML VIAL SC SCH ×2 (06:23→15:16)
[2017-03-14 06:30] LABS: BASOPHILS % 0.3 % (0.0-2.0); EOSINOPHILS # 0.4 10^3/ul (0.0-0.5); EOSINOPHILS % 6.1 % (0.0-7.0); HEMATOCRIT 34.5 % (42.0-52.0); HEMOGLOBIN 11.7 g/dl (14.0-18.0); LYMPHOCYTES # 1.2 10^3/ul (0.8-2.9); LYMPHOCYTES % 18.3 % (15.0-51.0); MEAN CORPUSCULAR HEMOGLOBIN 30.4 pg (29.0-33.0); MEAN CORPUSCULAR HGB CONC 33.9 g/dl (32.0-37.0); MEAN CORPUSCULAR VOLUME 89.6 fl (82.0-101.0); MEAN PLATELET VOLUME 11.2 fl (7.4-10.4); MONOCYTE # 0.8 10^3/ul (0.3-0.9); MONOCYTES % 12.5 % (0.0-11.0); NEUTROPHILS % 62.5 % (39.0-77.0); PLATELET COUNT 190 10^3/UL (140-415); RED BLOOD COUNT 3.85 10^6/ul (4.70-6.10); RED CELL DISTRIBUTION WIDTH 16.2 % (11.5-14.5); WHITE BLOOD COUNT 6.4 10^3/ul (4.8-10.8)
[2017-03-14 06:55] LABS: CALCIUM 9.2 mg/dl (8.4-10.2); CREATININE 0.9 mg/dl (0.61-1.24); POTASSIUM 3.7 mmol/L (3.5-5.1)
[2017-03-14 07:39] VITALS: BP 149/86; RESP 20
[2017-03-14] MEDS: MULTIVITAMINS 10 ML, THIAMINE 100 MG, FOLIC ACID 1 MG in SOD CHLORIDE 0.9% 1,000 ML IVPB SCH (09:20)
[2017-03-14] MEDS: DOCUSATE SODIUM 100 MG CAP PO SCH (09:20)
[2017-03-14] MEDS: SOD CHLORIDE 0.9% 1,000 ML IV SCH (09:26)
[2017-03-14] MEDS ORDERED: Oxycodone/Acetamin (5/325) PO (11:09)
[2017-03-14] MEDS ORDERED: DOCU-216 PO (11:09)
--- NOTE | 2017-03-14 11:13 | PDOCDIS ---
Discharge Instructions DIAGNOSIS Discharge Diagnosis: 1. left calcaneal fracture 2. reported alcohol withdrawal 3. tobacco use CONDITION Patient Condition: Stable HOME CARE INSTRUCTIONS: Diet Instructions: Low Fat /Cholesterol FOLLOW UP/APPOINTMENTS Appointments 1. Follow up with Dr. Arron Mortensen in one week 2. Follow up with your primary care provider in 1-2 weeks WILBERT UP Mar 14, 2017 11:13
--- NOTE | 2017-03-14 15:38 | DS ---
Date/Time of Note Date/Time of Note DATE: 03/14/17 TIME: 15:36 Discharge Summary Admission/Discharge Info Admit Date/Time Mar 10, 2017 at 10:00 Discharge Date/Time Final Diagnosis 1. Left calcaneal fracture. 2. Reported alcohol withdrawal syndrome. 3. History of heavy tobacco use. Patient Condition: Stable Consults 1. In [facility] This is a 51-year-old male who was brought to [facility] after suffering from a ground-level fall on his left ankle resulting in a left foot comminuted nondisplaced fracture of the calcaneus. Patient denied hitting his head or any loss of consciousness when he fell. Patient was seen by orthopedic surgeon and he did have mobilization of left foot with a dressing in place. He was recommended for elevation of the left heel and foot nonweightbearing. He was also provided with analgesics and physical therapy to help him. Due to swelling of his left foot he was advised for follow-up with orthopedic surgeon within a week for further management and care. He was otherwise optimized medically. He did have reported history of alcohol drinking but no evidence of DTs were seen at this time. Alcohol cessation was advised. He also was noted to be a cigarette smoker and was advised for cigarette smoking cessation. Of note patient did have a history of basal cell skin cancer and was advised for outpatient follow-up for this issue. During his course of stay he did improve. The plan of care was discussed with the patient and patient did verbalize understanding. On the day of discharge patient was in stable condition Discussed plan of care with Dr. Franklin Discharge process time: 40 minutes Home Meds Active Scripts Docusate Sodium (Dok) 100 Mg Capsule, 100 MG PO BID, #30 CAP Prov:WILBERT UP 03/14/17 [Oxycodone/Acetamin (5/325)] 1 TAB TAB No Conflict Check, 2 TAB PO Q4H Y for PAIN, #30 Prov:WILBERT UP 03/14/17 Discontinued Scripts Lorazepam* (Lorazepam*) 1 Mg Tablet, 1 MG PO Q8, #6 TAB Prov:CONCETTA MANRIQUEZ MD 06/02/16 Follow-up Plan CONDITION Patient Condition: Stable HOME CARE INSTRUCTIONS: Diet Instructions: Low Fat /Cholesterol FOLLOW UP/APPOINTMENTS Appointments 1. Follow up with In [facility] in one week 2. Follow up with your primary care provider in 1-2 weeks Primary Care Provider [facility] Pending Labs Laboratory Tests Test 03/14/17 05:52 White Blood Count 6.410^3/ul (4.8-10.8) Red Blood Count 3.8510^6/ul (4.70-6.10) Hemoglobin 11.7g/dl (14.0-18.0) Hematocrit 34.5% (42.0-52.0) Mean Corpuscular Volume 89.6fl (82.0-101.0) Mean Corpuscular Hemoglobin 30.4pg (29.0-33.0) Mean Corpuscular Hemoglobin Concent 33.9g/dl (32.0-37.0) Red Cell Distribution Width 16.2% (11.5-14.5) Platelet Count 26457^3/UL (140-415) Mean Platelet Volume 11.2fl (7.4-10.4) Neutrophils % 62.5% (39.0-77.0) Lymphocytes % 18.3% (15.0-51.0) Monocytes % 12.5% (0.0-11.0) Eosinophils % 6.1% (0.0-7.0) Basophils % 0.3% (0.0-2.0) Nucleated Red Blood Cells % 0.0/100WBC (0.0-0.0) Neutrophils # 4.010^3/ul (1.6-7.5) Lymphocytes # 1.210^3/ul (0.8-2.9) Monocytes # 0.810^3/ul (0.3-0.9) Eosinophils # 0.410^3/ul (0.0-0.5) Basophils # 0.010^3/ul (0.0-0.1) Nucleated Red Blood Cells # 0.010^3/ul (0.0-0.0) Sodium Level 140mmol/L (135-144) Potassium Level 3.7mmol/L (3.5-5.1) Chloride Level 105mmol/L (97-110) Carbon Dioxide Level 27mmol/L (21-31) Anion Gap 12 (8-16) Blood Urea Nitrogen 12mg/dl (7-20) Creatinine 0.90mg/dl (0.61-1.24) Glucose Level 103mg/dl (70-220) Calcium Level 9.2mg/dl (8.4-10.2) WILBERT UP Mar 14, 2017 15:38
== END 2017-03-14 16:05 | disposition home or self-care (01) | DRG 563 ==
LOC: E/R 14:08 → MS1 17:15 → OBSVTOIN 03-10 10:00 → MS2 03-13 18:45
PROVIDERS: ADMIT Internal Medicine; ATTEND Internal Medicine
DX: S92.012A Displaced fracture of body of left calcaneus, initial encounter for closed fracture (principal); F10.239 Alcohol dependence with withdrawal, unspecified; S82.891A Other fracture of right lower leg, initial encounter for closed fracture; F17.210 Nicotine dependence, cigarettes, uncomplicated; D72.829 Elevated white blood cell count, unspecified; Z85.828 Personal history of other malignant neoplasm of skin; W18.09XA Striking against other object with subsequent fall, initial encounter
CPT/HCPCS: 36415; 73610; 73630; 73700; 80048; 80061; 80306; 80307; 83036; 83735; 84100; 84484; 85025; 85610; 85730; 93005; 96372; 96374; 96376; 97116; 97162; 97530; C9113; G0378; J1170; J1644; J2060; J2270; J2405; J3411; J7030

== ENCOUNTER 2017-08-07 08:52 | Day surgery (SDC) | payer OTHER ==
[~2017-08-07] VITALS: Ht 172.7 cm; Wt 77.2 kg
[~2017-08-07 08:52] MED LIST changes: +DOCU-216 PO; -LORA1TAB PO; +Oxycodone/Acetamin (5/325) PO
[2017-08-07 09:46] VITALS: Ht 172.7 cm; Wt 77.2 kg
[2017-08-07] MEDS ORDERED: FENTAnyl 50 MCG/ML VIAL ONE (09:49)
[2017-08-07] MEDS ORDERED: MIDAZOLAM 1 MG/ML 2 ML INJ ONE ×2 (09:49→10:21)
[2017-08-07] MEDS ORDERED: NAPROSYN (10:03)
[2017-08-07] MEDS ORDERED: GABAPENTIN (10:03)
[2017-08-07] MEDS ORDERED: ATORVASTATIN (10:03)
[2017-08-07] MEDS ORDERED: CLONAZEPAM (10:03)
[2017-08-07] MEDS ORDERED: SEROQUEL (10:03)
[2017-08-07] MEDS ORDERED: PROPOFOL 20 ML ONE (10:20)
[2017-08-07] MEDS ORDERED: LIDOCAINE 2% (SDV) 5 ML INJ ONE (10:20)
[2017-08-07 10:25] VITALS: BP 112/78; PULSE 99; RESP 26
--- NOTE | 2017-08-07 11:09 | OPPN ---
Date/Time of Note Date/Time of Note DATE: 08/07/17 TIME: 11:08 Operative Report Preoperative Diagnosis History of colon polyps Postoperative Diagnosis Small right colon polyp was removed Diverticulosis of the colon Internal hemorrhoids Operation/Procedure Performed Colonoscopy and biopsy Surgeon see signature line educational assistant None Anesthesia: MAC Estimated blood loss: none Transfusion Required none Specimen Right colon polyp Grafts/Implants none Complications none NEFTALI OSBORN MD Aug 07, 2017 11:09
[2017-08-07 11:30] VITALS: BP 114/74; RESP 14
--- NOTE | 2017-08-08 02:43 | GILP ---
DATE OF PROCEDURE: NAME OF PROCEDURES: Colonoscopy and biopsy. SURGEON: Rick Lainez MD PREOPERATIVE DIAGNOSIS: History of colon polyps. POSTOPERATIVE DIAGNOSES: 1. Colonoscopy all the way to the cecum. 2. Small right colon polyp was removed using the biopsy forceps. 3. Diverticulosis of the colon. 4. Internal hemorrhoids. INDICATION FOR THE PROCEDURE: Mr. Andrew Arrington is a 52-year-old male patient who had history of co edie polyps. The patient was scheduled for followup colonoscopy. The procedure and possible complications are well explained to the patient. He understood and conse nted to the procedure. Under the influence of anesthesia, the colonoscope was carefully introduced in the rectum and under direct vision, it was advanced all the way to the cecum. FINDINGS: The patient had a small right colon polyp and it was removed using the biopsy forceps. H e was noted to have diverticulosis of the colon and internal hemorrhoids. He tolerated the procedure very well and there was no complication from the procedure. At the end o f the procedure, he was awake with stable vital signs and he was discharged home to the care of his family. IMPRESSION: 1. Colonoscopy all the way to the cecum. 2. Small right colon polyp was removed using the biopsy forceps. 3. Diverticulosis of the colon. 4. Internal hemorrhoids. PLAN: 1. High fiber diet. 2. Next screening colonoscopy in 5 years. Dictated By: RICK PAGE/SONG Conf#: [id number] DID#: [id number]
== END 2017-08-07 13:06 | disposition home or self-care (01) ==
LOC: GIL 08:52
PROVIDERS: ATTEND Internal Medicine Gastroenterology
DX: Z86.010 Personal history of colon polyps (principal); K57.90 Diverticulosis of intestine, part unspecified, without perforation or abscess without bleeding; K64.8 Other hemorrhoids; F41.9 Anxiety disorder, unspecified
CPT/HCPCS: 45380; J2250; J3010; Z7610